=== PATIENT | male | born 1985 | race Caucasian/White ===

== ENCOUNTER 2023-12-26 12:33 | Emergency (ER) | payer SELFPAY ==
--- NOTE | ~2023-12-26 | XR_ITS ---
XR finger 1st LT min 2V DATE: 12/26/2023 12:58 INDICATION: Laceration TECHNIQUE: 3 views COMPARISON: None FINDINGS: No radiopaque soft tissue foreign body or subcutaneous emphysema. No fracture, dislocation, periosteal reaction or bone destruction of the first digit. IMPRESSION: Negative Reviewed, dictated and finalized at location A. IMPRESSION: Negative
[2023-12-26 12:41] VITALS: BP 178/107; PULSE 123; RESP 18; TEMP 36.7; O2SAT 100
--- NOTE | 2023-12-26 14:08 | ED.WOUNDLAC ---
HPI - Wound/Laceration General Chief Complaint: Wound/Laceration Stated Complaint: Laceration to Finger Time Seen by Provider: 12/26/23 13:38 Source: patient and family (father) Mode of arrival: ambulatory Limitations: no limitations History of Present Illness HPI narrative: Patient presents after accidentally cutting himself with a razor blade. Sustained laceration to left finger, 1st digit. Right hand dominant. Denies intentional; no SI. Last tetanus shot unknown, approximately 10 years ago he believes. Has not yet taken anything for pain. 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 HEAD: Normocephalic, atraumatic. EYES: Non injected, non icteric ENT: Nares clear, no rhinorrhea or epistaxis. NECK: Supple. CHEST: Speaking in full sentences. No respiratory distress. HEART: Tachycardic rate and rhythm. Brisk capillary refilll. ABDOMEN: Soft, nondistended. EXTREMITIES: Normal range of motion. 1.5cm laceration 1st digit left hand, bleeding well controlled. No pallor. SKIN: Warm, dry, no rash. NEURO: No focal deficits. Alert and oriented x3. Able to flex and extend but not held in fixed flexion/extension. Sensation intact. No abnormal movements appreciated. PSYCH: Normal mood and affect. Course Vital Signs Vital signs: Vital Signs Temperature 98.1 F 12/26/23 12:41 Pulse Rate 123 H 12/26/23 12:41 Respiratory Rate 18 12/26/23 12:41 Blood Pressure 178/107 H 12/26/23 12:41 Pulse Oximetry 100 12/26/23 12:41 Oxygen Delivery Room Air 12/26/23 12:41 Temperature 97.6 F 12/26/23 14:41 Pulse Rate 98 12/26/23 14:41 Respiratory Rate 18 12/26/23 14:41 Blood Pressure 137/82 12/26/23 14:41 Pulse Oximetry 100 12/26/23 14:41 Oxygen Delivery Room Air 12/26/23 12:41 Procedures Laceration Laceration 1: Date: 12/26/23 Site: hand (1st digit) Side (If applicable): left Size (cm): 1.5 Description: linear Depth: simple, single layer Pre-repair: irrigated (hydrogen peroxide) ====== Skin Level ====== Skin layer closed with: other (Ethilon) Size (cm): 5-0 Number of sutures: 3 Technique: simple, interrupted ====== Subcutaneous Layer ====== ====== Muscle Layer ====== ====== Tendon Layer ====== Dressing: Bacitracin versus petroleum jelly and dressing to be applied by RN Nerve Block Nerve Block 1: Nerve block date: 12/26/23 Local Anesthetic: lidocaine 1% Amount of anesthesia used (mL): 8 Side: left Nerve Blocks: digital (1st digit) Complications: pain with procedure (mild, with first suture particularly) and inadequate anesthesia MDM - Wound/Laceration MDM Narrative Medical decision making narrative: R hand dominant male presents with laceration accidentally sustained with razor blade to left first digit. Bleeding well controlled. In the ED he is afebrile with VS that initially show tachycardia and hypertension. Nerve block and repair as above. Tachycardia and hypertension resolve. Tetanus updated and patient given PO acetaminophen. Discharged in stable condition. Advised for need for suture removal in 7-10 days. Advised on appropriate wound care and sign
[2023-12-26] MEDS: TETANUS,DIPHTHERIA,AC PERTUSSIS ADULT (0.5 ML) BOOSTRIX IM (14:18)
[2023-12-26] MEDS: ACETAMINOPHEN 500 MG TABLET 1000 MG PO (14:19)
[2023-12-26 14:41] VITALS: BP 137/82; PULSE 98; RESP 18; TEMP 36.4; O2SAT 100
[2023-12-26] MEDS: BACITRACIN OINTMENT 15 GM TUBE 1 APPLIC TOPICAL (14:54)
== END 2023-12-26 15:04 | disposition home or self-care (01) ==
PROVIDERS: Emergency Provider Student in an Organized Health Care Education/Training Program
DX: S61.012A Laceration without foreign body of left thumb without damage to nail, initial encounter (principal); G40.909 Epilepsy, unspecified, not intractable, without status epilepticus; W26.8XXA Contact with other sharp object(s), not elsewhere classified, initial encounter; Z23 Encounter for immunization
CPT/HCPCS: 12001; 73140; 90471; 90715; 99283; A9270